=== PATIENT | female | born 1960 | race Caucasian/White ===

== ENCOUNTER → 2016-12-31 | Outpatient (CLI) | payer BC ==
--- NOTE | 2017-01-01 07:56 | MAMMOGRAPHY REPORT ---
BILATERAL DIGITAL DIAGNOSTIC MAMMOGRAM WITH CAD: 12/31/2016 CLINICAL HISTORY: 56-year-old woman presents for follow-up of bilateral breast microcalcifications, most numerous in the superior left breast. Also time of annual bilateral screening exam. TECHNIQUE: Bilateral CC and MLO views of the breasts with and without implant displacement views, an d bilateral CC and ML spot magnification views were obtained. Current study was also evaluated with a Computer Aided Detection (CAD) system. COMPARISON: Comparison is made to exams dated: 07/02/2016 mammogram, 11/25/2015 mammogram, 11/25/2015 ultrasound, 11/25/2015 ultrasound, and 11/17/2015 mammogram - [facility]. BREAST COMPOSITION: There are scattered areas of fibroglandular density in both breasts. FINDINGS: Bilateral subglandular saline implants are intact. Grouped microcalcifications in the ret roareolar, central and 6:00 right breast, and superior left breast are again seen. Based on the spo t magnification views and comparing back to spot magnification views performed 11/25/2015, the micro calcifications appear similar in number and distribution. No suspicious mass, architectural distort ion or new cluster of suspicious microcalcifications is seen. Another 12 month follow-up diagnostic mammogram including spot magnification views is recommended to ensure longer stability. IMPRESSION: ACR-BI-RADS CATEGORY 3: PROBABLY BENIGN Stable bilateral mammograms, including a small grouping of microcalcifications in the retroareolar, central and medial right breast, and grouped microcalcifications throughout the superior left breast . Another 12 month follow-up bilateral diagnostic mammogram including spot magnification views is r ecommended to ensure longer stability. These results and recommendations were discussed with the patient at the time of the exam. Approximately 10% of breast cancers are not detected with mammography. A negative mammographic repor t should not delay biopsy if a clinically suggestive mass is present. Simi Beard M.D. ay/:12/31/2016 16:02:07 Cook Night: Gwendolyn HEARN(Cassie)(M), [facility] letter sent: Follow Up Recommended 3 BI-RADS Code: ACR-BI-RADS Category 3: Probably Benign
== END | disposition home or self-care (01) ==
LOC: C.MAMM 08:07
PROVIDERS: ATTEND Physician Assistant
DX: R92.0 Mammographic microcalcification found on diagnostic imaging of breast (principal)